=== PATIENT | female | born 1975 | race Caucasian/White ===

== ENCOUNTER → 2016-07-23 | Outpatient (CLI) | payer BC ==
[2016-05-02 12:55] VITALS: BP 150/90
--- NOTE | 2016-07-23 13:49 | RAD ---
Examination: X-rays of the right foot. Clinical history: Right foot pain, 5th digit. Technique: Three views of the right foot were obtained. Comparison: None available. Findings: A laterally placed metallic plate and multiple screws are incompletely visualized associated with th e distal fibula. 2 metallic screws are seen associated with the medial malleolus of the distal tibia . No acute fracture, dislocation, or destructive bony lesion is noted. Marked osteoarthritic changes are seen associated with the tibiotalar joint, with moderate osteoarth ritic changes also seen at the talonavicular joint. A tiny bony spur is seen at the posterior aspect of the calcaneus, consistent with enthesopathy. No soft tissue abnormality is noted. Impression: 1. No acute fracture or dislocation. Reported By:
== END ==
LOC: RAD 13:08
PROVIDERS: ATTEND Nurse Practitioner Family
DX: M79.671 Pain in right foot (principal); R26.89 Other abnormalities of gait and mobility
CPT/HCPCS: 73630

== ENCOUNTER 2024-06-29 10:45 | Observation (INO) ==
[2024-06-29] MEDS ORDERED: ZOFRAN INJ 4 MG VIAL IVP PRN (10:52)
[2024-06-29 12:09] LABS: BASOPHILS # (AUTO) 0.1 X10^3/uL (0.0-0.1); BASOPHILS % (AUTO) 1.6 % (0.2-1.0); EOSINOPHILS # (AUTO) 0.1 x10^3/uL (0.0-0.2); EOSINOPHILS % (AUTO) 1.2 % (0.9-2.9); HEMATOCRIT 41.1 % (36.0-47.0); HEMOGLOBIN 14.1 g/dL (12.0-16.0); LYMPHOCYTES % (AUTO) 22.4 % (21.0-51.0); MEAN CORPUSCULAR HGB CONC 34.2 g/dL (33.0-35.0); MEAN CORPUSCULAR VOLUME 84.9 fL (80.0-100.0); MEAN PLATELET VOLUME 9.8 fL (7.4-11.0); MONOCYTES # (AUTO) 0.5 x10^3/uL (0.3-0.8); MONOCYTES % (AUTO) 5.8 % (0.0-13.0); NEUTROPHILS # (AUTO) 6.3 x10^3/uL (2.2-4.8); PLATELET COUNT 203 X10^3/uL (150.0-450.0); RED BLOOD COUNT 4.85 X10^6/uL (3.5-5.4); RED CELL DISTRIBUTION WIDTH 13.7 % (11.6-16.5); WHITE BLOOD COUNT 9.1 X10^3/uL (3.6-10.0)
[2024-06-29] MEDS: PHARMACY CONSULT - VANCOMYCIN XX SCH (12:22)
--- NOTE | 2024-06-29 12:36 | DR.H&P ---
H&P History & Physical for Day of: H&P Date: 06/29/24 Chief Complaint Chief Complaint: pain, redness and swelling to lower legs, severe right hip and lower back pain, right leg weakness History of Present Illness History of Present Illness: PT IS 49 WF, DIRECT ADMIT FROM DR HERNANDEZ OFFICE WITH BILATERAL LOWER EXTREMITY CELLULITIS WITH ULCERATIONS, INTRACTABLE RIGHT LOWER LEG PAIN AND RIGHT SIDE LOWER LEG PAIN WITH WEAKNESS AND IMPAIRED GAIT. PT HAS COMPLETED TWO ROUNDS OR PO ANTIBIOTICS FOR CELLULITIS WITH TOPICAL GENTAMI YULI CREAM WITHOUT IMPROVEMENT. PT HAS DM, FAIRLY CONTROLLED. PT HAS POOR MOBILITY DUE TO RIGHT LEG WEAKNESS WITH 2 FALLS IN THE PAST WEEK. PT STATES RIGHT LEG GIVES OUT. PT HAS PMH OF L SPINE DDD AND RELATES WEAKNESS AND NUMBNESS TO RLE FROM "PINCHED NERVE" IN HER BACK. PT HAS HAD STEROIDS IN THE PAST BUT CANNOT TOLERATE PROLONGED USE DUE TO ELEVATED BLOOD SUGARS. PT ADMITTED FOR EVALUATION AND TREATMENT OF ACUTE ILLNESS AND RO DVT AND RO SPINAL CORD COMPRESSION. Past Medical History Past Medical History: Diabetes and GERD Past Surgical History Surgical History: RUBBER MIXER Surgery and Ortho Surgery Family History Family Medical History: Diabetes Mellitus and Hypertension Medications Home Medications: Home Medications Medication Instructions Recorded Confirmed Type Metformin HCl 1 tab PO BID 04/30/16 04/30/16 History Omeprazole [Prilosec 40 mg] 1 tab PO DAILY 04/30/16 04/30/16 History lisinopril 20 1 tab PO DAILY 04/30/16 04/30/16 History mg-hydrochlorothiazide 12.5 mg tablet meloxicam 15 mg tablet 1 tab PO DAILY 04/30/16 04/30/16 History norethindrone 1 mg-ethinyl 1 tab PO DAILY 04/30/16 04/30/16 History estradiol 20 mcg (21)-iron 75 mg (7) tablet (Kait Fe 05/14 (28)) oxycodone-acetaminophen 5 mg-325 1 - 2 tab PO Q4H PRN Pain 04/30/16 04/30/16 History mg tablet Allergies Allergies Allergy/AdvReac Type Severity Reaction Status Date / Time MUSTARD Allergy Uncoded 08/15/15 11:40 Labs 06/29/24 11:45 06/29/24 11:45 Labs: Laboratory WBC 9.1 X10^3/uL (3.6-10.0) 06/29/24 11:45 RBC 4.85 X10^6/uL (3.5-5.4) 06/29/24 11:45 Hgb 14.1 g/dL (12.0-16.0) 06/29/24 11:45 Hct 41.1 % (36.0-47.0) 06/29/24 11:45 MCV 84.9 fL (80.0-100.0) 06/29/24 11:45 MCH 29.0 pg (27.0-34.0) 06/29/24 11:45 MCHC 34.2 g/dL (33.0-35.0) 06/29/24 11:45 RDW 13.7 % (11.6-16.5) 06/29/24 11:45 Plt Count 203 X10^3/uL (150.0-450.0) 06/29/24 11:45 MPV 9.8 fL (7.4-11.0) 06/29/24 11:45 Neut % (Auto) 69.0 % (42.0-75.0) 06/29/24 11:45 Lymph % (Auto) 22.4 % (21.0-51.0) 06/29/24 11:45 [place] % (Auto) 5.8 % (0.0-13.0) 06/29/24 11:45 Eos % (Auto) 1.2 % (0.9-2.9) 06/29/24 11:45 Baso % (Auto) 1.6 % (0.2-1.0) H 06/29/24 11:45 Neut # (Auto) 6.3 x10^3/uL (2.2-4.8) H 06/29/24 11:45 Lymph # (Auto) 2.0 X10^3/uL (1.3-2.9) 06/29/24 11:45 [place] # (Auto) 0.5 x10^3/uL (0.3-0.8) 06/29/24 11:45 Eos # (Auto) 0.1 x10^3/uL (0.0-0.2) 06/29/24 11:45 Baso # (Auto) 0.1 X10^3/uL (0.0-0.1) 06/29/24 11:45 Absolute Nucleated RBC 0.1 /100WBC 06/29/24 11:45 Review of Systems Constitutional: Chills, Weakness and Malaise Eyes: No Symptoms Reported ENT: No Symptoms Reported Respiratory: SOB with Excertion Cardiovascular: Palpitations, Edema and Light Headedness Gastrointestinal: Diarrhea Genitourinary: No Symptoms Reported Musculoskeletal: Back Pain, Leg Pain and Foot Pain Skin: Rash and Wound Neurological: Weakness (RIGHT LOWER EXTREMITY) Physical Exam Vital Signs: Vital Signs Temperature 97.5 F Pulse Rate [Brachial] 66 Respiratory Rate 18 Blood Pressure [Right Arm] 185/84 O2 Sat by Pulse Oximetry 97 Oriented: Normal Eyes: Normal Ear: Normal Nose: Normal Throat: Dry Respiratory: RLL Diminished and LLL Diminished Cardiovascular: Tachycardia and Edema : Normal Auscultation: Bowel Sounds: Normal Palpation: Normal Tenderness: Normal Skin: Rash, Red, Tender and Hot Musculoskeletal: Right, Left, Knee, Leg, Foot, Back:Lumbar, Motor Deficit and Sensory Deficit (DECREASED SENSATION TO RLE) Psychiatric: Anxiety Mood Description: Anxious Speech Pattern: Clear and Appropriate Assessment/Plan (1) Bilateral lower leg cellulitis: Status: Acute Plan: ADMIT, WOUND AND BLOOD CULTURES ON ADMISSION IV VANCOMYCIN, WOUND CULTURE FOM BCIM +MRSA ADMISSION LABS, PAIN CONTROL BP AND BS CONTROL VERIFY AND RESUME HOME MEDICATIONS MRI LSPINE, US LE RO DVT, LOVENOX (2) Stasis edema with ulcer of right lower extremity: Status: Acute (3) Right leg weakness: Status: Acute (4) Degenerative lumbar spinal stenosis: Status: Acute (5) Diabetes mellitus, type 2: Status: Chronic (6) Hypertension: Qualifiers: Hypertension type: essential hypertension Qualified Code(s): I10 - Essential (primary) hypertension Status: Chronic (7) Intractable back pain: Status: Acute (8) Repeated falls: Status: Acute
[2024-06-29] MEDS: NS 1,000 ML IV 1,000 ML IV SCH (12:38)
[2024-06-29] MEDS: PROTONIX TAB 40 MG PO SCH (12:39)
[2024-06-29] MEDS: LOVENOX INJ 40 MG SYR SC SCH (12:39)
[2024-06-29 12:53] LABS: ALANINE AMINOTRANSFERASE 19 Units/L (12-78); ALKALINE PHOSPHATASE 60 Units/L (46-116); ASPARTATE AMINO TRANSFERASE 12 Units/L (15-37); BLOOD UREA NITROGEN 13 mg/dL (7-18); CALCIUM 8.5 mg/dL (8.5-10.1); CARBON DIOXIDE 27.3 mmol/L (21-32); CHLORIDE 102 mmol/L (98-107); COR CA(FOR HYPOALB) 9.3 mg/dL (8.5-10.1); COR NA(FOR HYPERGLY) 138 mmol/L (136-145); CREATININE 0.57 mg/dL (0.55-1.02); GLUCOSE 208 mg/dL (65-99); MAGNESIUM 1.9 mg/dL (2.0-2.9); POTASSIUM 3.9 mmol/L (3.5-5.1); SODIUM 135 mmol/L (136-145); eGFR NON BLACK RACES > 60 (>60)
[2024-06-29] MEDS: NovoLIN R (or HumuLIN R) SUBCUT PRN (13:04)
[2024-06-29 13:38] LABS: BILIRUBIN,URINE NEGATIVE (NEGATIVE); BLOOD/HEMOGLOBIN,URINE NEGATIVE (NEGATIVE); GLUCOSE, URINE 1+ (NEGATIVE); KETONES,URINE NEGATIVE (NEGATIVE); LEUKOCYTE ESTERASE ,URINE 2+ (NEGATIVE); NITRITES,URINE NEGATIVE (NEGATIVE); PROTEIN,URINE NEGATIVE (NEGATIVE); UROBILINOGEN,URINE NORMAL (NORMAL)
[2024-06-29 13:44] LABS: APPEARANCE,URINE SLIGHTLY HAZY (CLEAR); COLOR,URINE YELLOW (YELLOW)
[2024-06-29 13:45] LABS: BACTERIA,URINE TRACE /HPF (NEGATIVE); RBC,URINE 0-2 /HPF (0-3); SQUAMOUS EPITHELIAL CELL,UR MODERATE /HPF (NEGATIVE)
[2024-06-29 15:07] VITALS: BMI 56.7
--- NOTE | 2024-06-29 15:30 | VAS ---
EXAM:LOWER EXT VENOUS, BILATERALHISTORY:R/O DVT;COMPARISON:None available.TECHNIQUE:Multiple mercado scale and color flow Doppler images of the deep venous system were obtained of the right and left lower extremity.FINDINGS:The deep venous system of the right and left lower extremities were evaluated from the level of the common femoral vein through the popliteal vein. Normal color flow and augmentation can be observed. In addition, normal compression is seen throughout the deep venous system.IMPRESSION:Negative for DVT.THIS IS AN ELECTRONICALLY VERIFIED FINAL REPORT06/29/2024 3:22 PM - Electronically signed by João Neumann MD
[2024-06-29] MEDS: VANCOMYCIN IV *PREMIX 1.5 G/300 ML BAG 1.5 G/300 ML PIGGYBACK IV ONE (16:05)
[2024-06-29] MEDS: SILVADENE TOP ONE (16:06)
[2024-06-29] MEDS: SNACK - Diabetic Appropriate PO SCH (21:00)
[2024-06-29] MEDS: VANCOMYCIN IV *PREMIX 1.25 G/250 ML BAG 1.25 G/250 ML PIGGYBACK IV SCH (23:00)
[2024-06-30] MEDS: MORPHINE SULFATE INJ 2 MG INJ IVP PRN (04:23)
[2024-06-30 06:51] LABS: BASOPHILS # (AUTO) 0.1 X10^3/uL (0.0-0.1); BASOPHILS % (AUTO) 0.9 % (0.2-1.0); EOSINOPHILS # (AUTO) 0.2 x10^3/uL (0.0-0.2); EOSINOPHILS % (AUTO) 2.1 % (0.9-2.9); HEMATOCRIT 37.7 % (36.0-47.0); LYMPHOCYTES # (AUTO) 1.6 X10^3/uL (1.3-2.9); MEAN CORPUSCULAR HGB CONC 34.6 g/dL (33.0-35.0); MEAN PLATELET VOLUME 9.4 fL (7.4-11.0); MONOCYTES # (AUTO) 0.6 x10^3/uL (0.3-0.8); MONOCYTES % (AUTO) 8.7 % (0.0-13.0); NEUTROPHILS % (AUTO) 67.3 % (42.0-75.0); PLATELET COUNT 202 X10^3/uL (150.0-450.0); RED BLOOD COUNT 4.49 X10^6/uL (3.5-5.4); RED CELL DISTRIBUTION WIDTH 13.2 % (11.6-16.5); WHITE BLOOD COUNT 7.4 X10^3/uL (3.6-10.0)
[2024-06-30 07:00] LABS: ALANINE AMINOTRANSFERASE 15 Units/L (12-78); ALBUMIN 2.6 g/dL (3.4-5.0); ALKALINE PHOSPHATASE 51 Units/L (46-116); ASPARTATE AMINO TRANSFERASE 7 Units/L (15-37); BLOOD UREA NITROGEN 14 mg/dL (7-18); CALCIUM 8.2 mg/dL (8.5-10.1); CARBON DIOXIDE 27.1 mmol/L (21-32); CHLORIDE 104 mmol/L (98-107); COR CA(FOR HYPOALB) 9.3 mg/dL (8.5-10.1); COR NA(FOR HYPERGLY) 139 mmol/L (136-145); CREATININE 0.58 mg/dL (0.55-1.02); GLUCOSE 185 mg/dL (65-99); MAGNESIUM 1.8 mg/dL (2.0-2.9); POTASSIUM 4.1 mmol/L (3.5-5.1); SODIUM 137 mmol/L (136-145); TOTAL PROTEIN 6.3 g/dL (6.4-8.2); eGFR NON BLACK RACES > 60 (>60)
[2024-06-30] MEDS: VITAMIN D3 125 mcg (5,000 UNITS) PO SCH (08:32)
--- NOTE | 2024-06-30 11:41 | MRI ---
EXAM:MRI LUMBAR SPINE WITHOUT CONTRASTHISTORY:DDD,R/O- MYLEOPATHY;COMPARISON:CT abdomen and pelvis 04/30/2016.TECHNIQUE:Multiplanar multisequence MRI was obtained through the lumbar spine without contrast.FINDINGS:There are 5 nonrib-bearing lumbar vertebral bodies. Alignment is within normal limits. Vertebral body heights are within normal limits. Marrow signal is within normal limits. The conus medullaris terminates normally. Visualized posterior abdomen and pelvis are within normal limits. There is no evidence of discitis, osteomyelitis, or epidural abscess.Included portions of the lower thoracic spine are within normal limits.L1-2: Within normal limitsL2-3: Within normal limitsL3-4: No disc pathology, mild facet arthropathyL4-5: No disc pathology, moderate facet arthropathy. No spinal stenosis or foraminal stenosis.L5-S1: No disc pathology, moderate facet arthropathy. Mild epidural lipomatosis. No spinal stenosis or foraminal stenosis.Incidental Tarlov cysts are noted in the sacrum which are of no clinical significance.IMPRESSION:1. Mild degenerative changes of the lower lumbar spine, predominantly affecting the posterior facet joints from L3 through S1.2. No evidence of focal disc protrusion, spinal stenosis, or nerve impingement.THIS IS AN ELECTRONICALLY VERIFIED FINAL REPORT06/30/2024 11:38 AM - Electronically signed by Stefano Vera MD
[2024-06-30] MEDS: PHARMACY COMMENT IV ONE (12:30)
[2024-06-30 13:19] LABS: CREATININE 0.43 mg/dL (0.55-1.02)
[2024-06-30] MEDS ORDERED: PATIENT'S HOME MEDICATION (Losartan-Hydrochlorothiazide 100-25 mg tablet) PO SCH (13:30)
--- NOTE | 2024-06-30 13:33 | PCM.PROG ---
Progress Note Progress Note for Day of Date of Exam: 06/30/24 Subjective Subjective: Patient seen at bedside, no acute events overnight. She is currently admitted for bilateral lower extremity cellulitis and UTI. She had ultrasound done yesterday which was negative for DVT. 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 She also had MRI lumbar done yesterday which is pending. The redness on her legs is slowly improving. Labs/imaging reviewed: -WBC 7.4 hemoglobin 13 potassium 4.1 creatinine 0.58 magnesium 1.8 D-dimer 0.64 -Venous ultrasound negative for DVT -Wound: Gram positive cocci -Urine Cx: contamination -HX of MRSA wound Plan: Elevate leg, continue pain control. Monitor erythema and swelling. Continue wound care. Continue IV antibiotics. Follow pending cultures. Follow- up pending MRI results. Continue home medications. Replace electrolytes as per protocol. Will resume blood pressure medication. Monitor a.m. labs and imagin g. Past Medical Family Social History Allergies: Allergies MUSTARD Allergy (Uncoded 08/15/15 11:40) Vital Signs and I&O's Vital Signs: Vital Signs Temperature 98.2 F Temperature 97.0 F Pulse Rate [Brachial] 70 Pulse Rate [Brachial] 72 Respiratory Rate 18 Respiratory Rate 19 Blood Pressure [Right Arm] 174/83 Blood Pressure [Right Arm] 148/71 O2 Sat by Pulse Oximetry 95 O2 Sat by Pulse Oximetry 97 Intake and Output: Intake & Output 06/27/24 06/28/24 06/29/24 06/30/24 23:59 23:59 23:59 23:59 Intake Total 350 / 350 1489 / 1489 Balance 350 / 350 1489 / 1489 Physical Exam Oriented: Normal Eyes: Normal Ear: Normal Nose: Normal Throat: Dry Respiratory: Normal Cardiovascular: Normal and Edema Auscultation: Bowel Sounds: Normal Tenderness: Normal Skin: Rash, Red, Tender and Hot Musculoskeletal: Right, Left, Knee, Leg, Foot, Back:Lumbar, Motor Deficit and Sensory Deficit (DECREASED SENSATION TO RLE) Psychiatric: Normal Mood Description: Calm Affect: Normal Speech Pattern: Clear Laboratory and Diagnostics 06/30/24 06:07 06/30/24 12:46 Labs: 06/29/24 12:55 Leg - Right Wound Gram Stain - Final 06/29/24 12:55 Leg - Right Wound Culture - Preliminary 06/29/24 12:55 Urine,Clean Catch Urine Culture - Final Laboratory WBC 7.4 X10^3/uL (3.6-10.0) 06/30/24 06:07 RBC 4.49 X10^6/uL (3.5-5.4) 06/30/24 06:07 Hgb 13.0 g/dL (12.0-16.0) 06/30/24 06:07 Hct 37.7 % (36.0-47.0) 06/30/24 06:07 MCV 84.0 fL (80.0-100.0) 06/30/24 06:07 MCH 29.0 pg (27.0-34.0) 06/30/24 06:07 MCHC 34.6 g/dL (33.0-35.0) 06/30/24 06:07 RDW 13.2 % (11.6-16.5) 06/30/24 06:07 Plt Count 202 X10^3/uL (150.0-450.0) 06/30/24 06:07 MPV 9.4 fL (7.4-11.0) 06/30/24 06:07 Neut % (Auto) 67.3 % (42.0-75.0) 06/30/24 06:07 Lymph % (Auto) 21.0 % (21.0-51.0) 06/30/24 06:07 [place] % (Auto) 8.7 % (0.0-13.0) 06/30/24 06:07 Eos % (Auto) 2.1 % (0.9-2.9) 06/30/24 06:07 Baso % (Auto) 0.9 % (0.2-1.0) 06/30/24 06:07 Neut # (Auto) 5.0 x10^3/uL (2.2-4.8) H 06/30/24 06:07 Lymph # (Auto) 1.6 X10^3/uL (1.3-2.9) 06/30/24 06:07 [place] # (Auto) 0.6 x10^3/uL (0.3-0.8) 06/30/24 06:07 Eos # (Auto) 0.2 x10^3/uL (0.0-0.2) 06/30/24 06:07 Baso # (Auto) 0.1 X10^3/uL (0.0-0.1) 06/30/24 06:07 Absolute Nucleated RBC 0.0 /100WBC 06/30/24 06:07 D-Dimer 0.64 ug/ml (0.0-0.57) H 06/29/24 11:45 Sodium 137 mmol/L (136-145) 06/30/24 06:07 Corrected Sodium 139 mmol/L (136-145) 06/30/24 06:07 Potassium 4.1 mmol/L (3.5-5.1) 06/30/24 06:07 Chloride 104 mmol/L (98-107) 06/30/24 06:07 Carbon Dioxide 27.1 mmol/L (21-32) 06/30/24 06:07 BUN 14 mg/dL (7-18) 06/30/24 06:07 Creatinine 0.43 mg/dL (0.55-1.02) L 06/30/24 12:46 Est GFR (MDRD) Af Amer > 60 (>60) 06/30/24 06:07 Est GFR (MDRD) Non-Af > 60 (>60) 06/30/24 06:07 Glucose 185 mg/dL (65-99) H 06/30/24 06:07 POC Glucose (mg/dL) 185 mg/dL (65-99) H 06/30/24 11:07 Calcium 8.2 mg/dL (8.5-10.1) L 06/30/24 06:07 Corrected Calcium 9.3 mg/dL (8.5-10.1) 06/30/24 06:07 Magnesium 1.8 mg/dL (2.0-2.9) L 06/30/24 06:07 Total Bilirubin 0.30 mg/dL (0.2-1.0) 06/30/24 06:07 AST 7 Units/L (15-37) L 06/30/24 06:07 ALT 15 Units/L (12-78) 06/30/24 06:07 Alkaline Phosphatase 51 Units/L (46-116) 06/30/24 06:07 B-Natriuretic Peptide 68.9 pg/mL (0-79) 06/29/24 12:25 Total Protein 6.3 g/dL (6.4-8.2) L 06/30/24 06:07 Albumin 2.6 g/dL (3.4-5.0) L 06/30/24 06:07 Globulin 3.7 g/dL (2.5-4.5) 06/30/24 06:07 Albumin/Globulin Ratio 0.7 Ratio (1.1-2.1) L 06/30/24 06:07 Specimen Type Clean catch urine 06/29/24 12:55 Urine Color Yellow (YELLOW) 06/29/24 12:55 Urine Appearance Slightly hazy (CLEAR) 06/29/24 12:55 Urine pH 5.0 (5.0 - 8.0) 06/29/24 12:55 Ur Specific [place] 1.020 (1.000-1.030) 06/29/24 12:55 Urine Protein Negative (NEGATIVE) 06/29/24 12:55 Urine Glucose (UA) 1+ (NEGATIVE) 06/29/24 12:55 Urine Ketones Negative (NEGATIVE) 06/29/24 12:55 Urine Blood Negative (NEGATIVE) 06/29/24 12:55 Urine Nitrite Negative (NEGATIVE) 06/29/24 12:55 Urine Bilirubin Negative (NEGATIVE) 06/29/24 12:55 Urine Urobilinogen Normal (NORMAL) 06/29/24 12:55 Ur Leukocyte Esterase 2+ (NEGATIVE) 06/29/24 12:55 Urine RBC 0-2 /HPF (0-3) 06/29/24 12:55 Urine WBC 10-20 /HPF (0-5) A 06/29/24 12:55 Ur Squamous Epith Cells Moderate /HPF (NEGATIVE) 06/29/24 12:55 Urine Bacteria Trace /HPF (NEGATIVE) 06/29/24 12:55 Urine Mucus Few /HPF (NEGATIVE) 06/29/24 12:55 Ur Culture Indicated? Yes/culture set up 06/29/24 12:55 Vancomycin Trough 11.0 ug/mL (15-20) L 06/30/24 12:46 Plan (1) Bilateral lower leg cellulitis: Status: Acute (2) Stasis edema with ulcer of right lower extremity: Status: Chronic (3) Right leg weakness: Status: Acute (4) Degenerative lumbar spinal stenosis: Status: Chronic (5) Diabetes mellitus, type 2: Status: Chronic (6) Hypertension: Status: Chronic Qualifiers: Hypertension type: essential hypertension Qualified Code(s): I10 - Essential (primary) hypertension (7) Intractable back pain: Status: Acute (8) Repeated falls: Status: Acute
[2024-06-30] MEDS: LEXAPRO PO SCH (13:41)
[2024-06-30] MEDS: HYZAAR 50/12.5 MG PO SCH (13:41)
[2024-06-30] MEDS: LEXAPRO ONE (13:51)
[2024-06-30] MEDS ORDERED: GLUCOPHAGE ONE (16:54)
[2024-06-30] MEDS: GLUCOPHAGE PO SCH (17:04)
[2024-06-30] MEDS: TRICOR TAB 160 MG PO SCH (21:46)
[2024-06-30] MEDS: ATARAX TAB 25 MG PO SCH (21:46)
[2024-07-01] MEDS ORDERED: GLUCOPHAGE ONE (05:17)
[2024-07-01 07:00] LABS: BASOPHILS # (AUTO) 0.2 X10^3/uL (0.0-0.1); BASOPHILS % (AUTO) 2.5 % (0.2-1.0); EOSINOPHILS # (AUTO) 0.2 x10^3/uL (0.0-0.2); EOSINOPHILS % (AUTO) 2.9 % (0.9-2.9); HEMATOCRIT 38.2 % (36.0-47.0); HEMOGLOBIN 13.1 g/dL (12.0-16.0); LYMPHOCYTES # (AUTO) 1.8 X10^3/uL (1.3-2.9); LYMPHOCYTES % (AUTO) 24.7 % (21.0-51.0); MEAN CORPUSCULAR HEMOGLOBIN 28.8 pg (27.0-34.0); MEAN CORPUSCULAR HGB CONC 34.2 g/dL (33.0-35.0); MEAN CORPUSCULAR VOLUME 84.2 fL (80.0-100.0); MEAN PLATELET VOLUME 9.7 fL (7.4-11.0); MONOCYTES # (AUTO) 0.5 x10^3/uL (0.3-0.8); MONOCYTES % (AUTO) 7.5 % (0.0-13.0); NEUTROPHILS # (AUTO) 4.4 x10^3/uL (2.2-4.8); NEUTROPHILS % (AUTO) 62.4 % (42.0-75.0); PLATELET COUNT 228 X10^3/uL (150.0-450.0); RED BLOOD COUNT 4.54 X10^6/uL (3.5-5.4); RED CELL DISTRIBUTION WIDTH 13.5 % (11.6-16.5); WHITE BLOOD COUNT 7.1 X10^3/uL (3.6-10.0)
[2024-07-01 07:08] LABS: ALANINE AMINOTRANSFERASE 15 Units/L (12-78); ALBUMIN 2.6 g/dL (3.4-5.0); ALKALINE PHOSPHATASE 55 Units/L (46-116); ASPARTATE AMINO TRANSFERASE 9 Units/L (15-37); BLOOD UREA NITROGEN 10 mg/dL (7-18); CALCIUM 8.3 mg/dL (8.5-10.1); CARBON DIOXIDE 28.9 mmol/L (21-32); CHLORIDE 103 mmol/L (98-107); COR CA(FOR HYPOALB) 9.4 mg/dL (8.5-10.1); COR NA(FOR HYPERGLY) 142 mmol/L (136-145); CREATININE 0.51 mg/dL (0.55-1.02); GLUCOSE 212 mg/dL (65-99); MAGNESIUM 1.7 mg/dL (2.0-2.9); POTASSIUM 3.8 mmol/L (3.5-5.1); SODIUM 139 mmol/L (136-145); TOTAL PROTEIN 6.4 g/dL (6.4-8.2); eGFR NON BLACK RACES > 60 (>60)
[2024-07-01] MEDS ORDERED: LEXAPRO ONE (07:44)
[2024-07-01] MEDS ORDERED: CONSULT PHARMACY - POTASSIUM & MAGNESIUM XX SCH (08:00)
[2024-07-01] MEDS: MAG-OX TAB PO SCH (08:45)
[2024-07-01] MEDS: K-DUR TAB 20 MEQ PO SCH (08:45)
[2024-07-01 11:14] VITALS: RESP 19
[2024-07-01 12:12] VITALS: BP 186/84; PULSE 73; TEMP 97.8; O2SAT 97
--- NOTE | 2024-07-03 11:21 | W.DIS.FURT ---
Summary of Discharge Discharge Summary of Date Date of Exam: 07/01/24 Admission Date Date of Admission: 06/29/24 Admission Diagnosis Hospital Course: Patient is a 49y/o female who presented with worsening LE redness, pain and swelling. She also had some ulceration in her legs. She was directly admitted for further care. She had been treated outpatient with PO antibiotics but continued to have worsening infection. She was started on IV antibiotics, cultures were collected. She also reported leg weakness and recent fall. Her labs were monitored daily and electrolytes replaced as needed. She did have lumbar MRI which showed degenerative changes. Venous US was negative for DVT. Her leg erythema and swelling was improving. She was stable to be discharged home on PO abx. She was initially sent home on doxycycline but her wound Cx came back with MRSA and Enteroccocus which is resistant. She will be sent linezolid for 7 days. She will f/u with PCP as scheduled. Vital Signs: Vital Signs (72 hours) 06/29/24 12:00 06/29/24 11:10 06/29/24 16:00 Temperature 97.5 F L 98.0 F Pulse Rate [Brachial] 66 63 Respiratory Rate 18 19 Blood Pressure [Right Arm] 185/84 181/70 O2 Sat by Pulse Oximetry 97 97 Oxygen Delivery Method Room Air Room Air Room Air 06/29/24 20:00 06/29/24 19:00 06/30/24 00:00 Temperature 98.6 F 98.0 F Pulse Rate [Brachial] 71 73 Respiratory Rate 20 16 Blood Pressure [Right Arm] 170/72 177/72 O2 Sat by Pulse Oximetry 97 98 Oxygen Delivery Method Room Air Room Air Room Air 06/30/24 04:23 06/30/24 04:53 06/30/24 04:00 Temperature 97.8 F Pulse Rate [Brachial] 73 Respiratory Rate 18 20 20 Blood Pressure [Right Arm] 155/67 O2 Sat by Pulse Oximetry 95 Oxygen Delivery Method Room Air 06/30/24 08:00 06/30/24 07:00 06/30/24 12:00 Temperature 97.0 F L 98.2 F Pulse Rate [Brachial] 72 70 Respiratory Rate 19 18 Blood Pressure [Right Arm] 148/71 174/83 O2 Sat by Pulse Oximetry 97 95 Oxygen Delivery Method Room Air Room Air Room Air 06/30/24 16:00 07/01/24 00:00 06/30/24 19:00 Temperature 97.7 F 98.3 F Pulse Rate [Brachial] 72 72 Respiratory Rate 19 16 Blood Pressure [Right Arm] 161/72 153/72 O2 Sat by Pulse Oximetry 93 L 96 Oxygen Delivery Method Room Air Room Air Room Air 07/01/24 04:00 Temperature 98.2 F Pulse Rate [Brachial] 73 Respiratory Rate 20 Blood Pressure [Right Arm] 165/72 O2 Sat by Pulse Oximetry 97 Oxygen Delivery Method Room Air Labs: Laboratory Last Values WBC 7.1 X10^3/uL (3.6-10.0) 07/01/24 05:45 RBC 4.54 X10^6/uL (3.5-5.4) 07/01/24 05:45 Hgb 13.1 g/dL (12.0-16.0) 07/01/24 05:45 Hct 38.2 % (36.0-47.0) 07/01/24 05:45 MCV 84.2 fL (80.0-100.0) 07/01/24 05:45 MCH 28.8 pg (27.0-34.0) 07/01/24 05:45 MCHC 34.2 g/dL (33.0-35.0) 07/01/24 05:45 RDW 13.5 % (11.6-16.5) 07/01/24 05:45 Plt Count 228 X10^3/uL (150.0-450.0) 07/01/24 05:45 MPV 9.7 fL (7.4-11.0) 07/01/24 05:45 Neut % (Auto) 62.4 % (42.0-75.0) 07/01/24 05:45 Lymph % (Auto) 24.7 % (21.0-51.0) 07/01/24 05:45 [place] % (Auto) 7.5 % (0.0-13.0) 07/01/24 05:45 Eos % (Auto) 2.9 % (0.9-2.9) 07/01/24 05:45 Baso % (Auto) 2.5 % (0.2-1.0) H 07/01/24 05:45 Neut # (Auto) 4.4 x10^3/uL (2.2-4.8) 07/01/24 05:45 Lymph # (Auto) 1.8 X10^3/uL (1.3-2.9) 07/01/24 05:45 [place] # (Auto) 0.5 x10^3/uL (0.3-0.8) 07/01/24 05:45 Eos # (Auto) 0.2 x10^3/uL (0.0-0.2) 07/01/24 05:45 Baso # (Auto) 0.2 X10^3/uL (0.0-0.1) H 07/01/24 05:45 Absolute Nucleated RBC 0.1 /100WBC 07/01/24 05:45 D-Dimer 0.64 ug/ml (0.0-0.57) H 06/29/24 11:45 Sodium 139 mmol/L (136-145) 07/01/24 05:45 Corrected Sodium 142 mmol/L (136-145) 07/01/24 05:45 Potassium 3.8 mmol/L (3.5-5.1) 07/01/24 05:45 Chloride 103 mmol/L (98-107) 07/01/24 05:45 Carbon Dioxide 28.9 mmol/L (21-32) 07/01/24 05:45 BUN 10 mg/dL (7-18) 07/01/24 05:45 Creatinine 0.51 mg/dL (0.55-1.02) L 07/01/24 05:45 Est GFR (MDRD) Af Amer > 60 (>60) 07/01/24 05:45 Est GFR (MDRD) Non-Af > 60 (>60) 07/01/24 05:45 Glucose 212 mg/dL (65-99) H 07/01/24 05:45 POC Glucose (mg/dL) 188 mg/dL (65-99) H 07/01/24 05:27 Calcium 8.3 mg/dL (8.5-10.1) L 07/01/24 05:45 Corrected Calcium 9.4 mg/dL (8.5-10.1) 07/01/24 05:45 Magnesium 1.7 mg/dL (2.0-2.9) L 07/01/24 05:45 Total Bilirubin 0.20 mg/dL (0.2-1.0) 07/01/24 05:45 AST 9 Units/L (15-37) L 07/01/24 05:45 ALT 15 Units/L (12-78) 07/01/24 05:45 Alkaline Phosphatase 55 Units/L (46-116) 07/01/24 05:45 B-Natriuretic Peptide 68.9 pg/mL (0-79) 06/29/24 12:25 Total Protein 6.4 g/dL (6.4-8.2) 07/01/24 05:45 Albumin 2.6 g/dL (3.4-5.0) L 07/01/24 05:45 Globulin 3.8 g/dL (2.5-4.5) 07/01/24 05:45 Albumin/Globulin Ratio 0.7 Ratio (1.1-2.1) L 07/01/24 05:45 Specimen Type Clean catch urine 06/29/24 12:55 Urine Color Yellow (YELLOW) 06/29/24 12:55 Urine Appearance Slightly hazy (CLEAR) 06/29/24 12:55 Urine pH 5.0 (5.0 - 8.0) 06/29/24 12:55 Ur Specific [place] 1.020 (1.000-1.030) 06/29/24 12:55 Urine Protein Negative (NEGATIVE) 06/29/24 12:55 Urine Glucose (UA) 1+ (NEGATIVE) 06/29/24 12:55 Urine Ketones Negative (NEGATIVE) 06/29/24 12:55 Urine Blood Negative (NEGATIVE) 06/29/24 12:55 Urine Nitrite Negative (NEGATIVE) 06/29/24 12:55 Urine Bilirubin Negative (NEGATIVE) 06/29/24 12:55 Urine Urobilinogen Normal (NORMAL) 06/29/24 12:55 Ur Leukocyte Esterase 2+ (NEGATIVE) 06/29/24 12:55 Urine RBC 0-2 /HPF (0-3) 06/29/24 12:55 Urine WBC 10-20 /HPF (0-5) A 06/29/24 12:55 Ur Squamous Epith Cells Moderate /HPF (NEGATIVE) 06/29/24 12:55 Urine Bacteria Trace /HPF (NEGATIVE) 06/29/24 12:55 Urine Mucus Few /HPF (NEGATIVE) 06/29/24 12:55 Ur Culture Indicated? Yes/culture set up 06/29/24 12:55 Vancomycin Trough 11.0 ug/mL (15-20) L 06/30/24 12:46 Reason For Visit: BILATERAL CELLULITIS, LEFT LOWER EXT. Discharge Diagnosis All Active Problems (Updated 07/03/24 @ 11:16 by eLah Chavez MD) MRSA cellulitis (Acute) Repeated falls (Acute) Intractable back pain (Acute) Degenerative lumbar spinal stenosis (Chronic) Right leg weakness (Acute) Stasis edema with ulcer of right lower extremity (Chronic) Bilateral lower leg cellulitis (Acute) Diarrhea (Acute) Abdominal pain (Acute) Hypertension (Chronic) Diabetes mellitus, type 2 (Chronic) Colitis (Acute) Plan of Treatment: Continue with present treatment and follow up plan. Pt is to keep follow up appointment as instructed and take medications as ordered. Discharge Medications Discharge Medications: MUSTARD Allergy (Uncoded 08/15/15 11:40) CONTINUE taking the following medications escitalopram oxalate 10 mg tablet 10 mg PO DAILY 06/29/24 [History] fenofibrate 160 mg tablet 160 mg PO QHS 06/29/24 [History] hydroxyzine HCl 25 mg tablet 25 mg PO QHS 06/29/24 [History] losartan 100 mg-hydrochlorothiazide 25 mg tablet 1 tab PO DAILY 06/29/24 [History] meloxicam 15 mg tablet 15 mg PO DAILY 06/29/24 [History] metformin 500 mg tablet 500 mg PO BID 06/29/24 [History] norethindrone 1 mg-ethinyl estradiol 20 mcg (21)-iron 75 mg (7) tablet 1 tab PO DAILY 06/29/24 [History] potassium chloride 20 mEq tablet,extended release(part/cryst) 20 meq PO DAILY 06/29/24 [History] tirzepatide 10 mg/0.5 mL subcutaneous pen injector (Mounjaro) 10 mg subcut QWEEK 06/29/24 [History] tramadol 50 mg tablet 50 mg PO Q8H PRN Pain 06/29/24 [History] New Prescriptions doxycycline hyclate 100 mg capsule 100 mg PO BID 7 days #14 caps 07/01/24 [Rx] Discharge Disposition Discharge Disposition: home Discharge Condition: stable Discharge Plan Discharge Plan Hospital Course: Patient is a 49y/o female who presented with worsening LE redness, pain and swelling. She also had some ulceration in her legs. She was directly admitted for further care. She had been treated outpatient with PO antibiotics but continued to have worsening infection. She was started on IV antibiotics, cultures were collected. She also reported leg weakness and recent fall. Her labs were monitored daily and electrolytes replaced as needed. She did have lumbar MRI which showed degenerative changes. Venous US was negative for DVT. Her leg erythema and swelling was improving. She was stable to be discharged home on PO abx. She was initially sent home on doxycycline but her wound Cx came back with MRSA and Enteroccocus which is resistant. She will be sent linezolid for 7 days. She will f/u with PCP as scheduled. Patient Disposition: 01 HOME, SELF-CARE Condition: Stable Health Concerns: Post Hospitalization: new medications and changes needed to prevent readmission or further decline. Pt educated and given instructions on all concerns. Plan of Treatment: Continue with present treatment and follow up plan. Pt is to keep follow up appointment as instructed and take medications as ordered. Prescription drug monitoring program results: PDMP reviewed and no concerns identified Prescriptions: New doxycycline hyclate 100 mg capsule 100 mg PO BID 7 Days Qty: 14 0RF linezolid 600 mg tablet 600 mg PO BID 7 Days Qty: 14 0RF Continued metformin 500 mg tablet 500 mg PO BID meloxicam 15 mg tablet 15 mg PO DAILY norethindrone-e.estradiol-iron 1 mg-20 mcg (21)/75 mg (7) tablet 1 tab PO DAILY tramadol 50 mg tablet 50 mg PO Q8H PRN (Reason: Pain) losartan-hydrochlorothiazide 100-25 mg tablet 1 tab PO DAILY potassium chloride 20 mEq tablet,ER particles/crystals 20 meq PO DAILY hydroxyzine HCl 25 mg tablet 25 mg PO QHS escitalopram oxalate 10 mg tablet 10 mg PO DAILY fenofibrate 160 mg tablet 160 mg PO QHS Mounjaro 10 mg/0.5 mL pen injector 10 mg SUBCUT QWEEK Discontinued sulfamethoxazole-trimethoprim 800-160 mg tablet 1 tab PO BID Orders to Discharge Patient Discharge Orders: Discharge (Routine); Ordered 07/01/24 Ordered By: Leah Chavez Follow ups/Referrals Follow ups/Referrals: BRITNEY FAROOQ [Primary Care Provider] - 1 WEEK Instructions Stand Alone Forms: Excuse From Work or School, Find Help Web Site, Post Hospital Follow Up Care
== END 2024-07-01 13:30 | disposition home or self-care (01) ==
LOC: MED/SURG
PROVIDERS: ADMIT Internal Medicine; ATTEND Internal Medicine